=== PATIENT | male | born 1990 | race American Indian/Alaskan Native ===

== ENCOUNTER 2019-05-04 02:41 | Emergency (ER) | payer SELFPAY ==
--- NOTE | 2019-05-04 03:40 | XRay Report ---
CHEST 1 VIEW INDICATION / CLINICAL INFORMATION: Chest Pain. COMPARISON: None available. FINDINGS: SUPPORT DEVICES: None. HEART / MEDIASTINUM: No significant abnormality. LUNGS / PLEURA: No significant pulmonary or pleural abnormality. No pneumothorax. ADDITIONAL FINDINGS: No significant additional findings. IMPRESSION: 1. No acute findings. Signer Name: Solo Medrano MD Signed: 05/04/2019 3:36 AM Workstation Name: [id number]
--- NOTE | 2019-05-04 07:35 | Emergency Department Report ---
ED General Adult HPI - General Chief complaint: Dyspnea/Respdistress Stated complaint: RUMA/CHEST PAIN/DIZZINESS Time Seen by Provider: 05/04/19 05:20 Source: patient Mode of arrival: Ambulatory Limitations: No Limitations - History of Present Illness Initial comments: Patient is a 28-year-old -[place] male with no past medical history presents to the ED with complaint of acute onset of persistent shortness of breath intermittently for the last 2 days after coming from his vacation in [facility]. He states that he had to cut short his visit to the [facility] 2 days ago after he developed lightheadedness and shortness of breath especially when he lays down to sleep. Patient states that he hit it on social media that at the carp[place] weren't gone to the [place] had 2 quarts of beer today because of carbon monoxide poisoning. Patient states that he believed that he is currently having, carbon monoxide poisoning. Patient states that prior to arrival in this ED he had been extensively worked up at [facility] and that all tests were unremarkable but he states that he was still not sure about the carbon monoxide poisoning and she decided to come to the ED for that test. Patient denies dizziness, fever, chills, nausea, vomiting, chest pain, cough, abdominal pain, syncope, seizures, diarrhea, headache, back pain, or sore throat MD Complaint: lightheadedness, dyspnea -: Sudden, days(s) (2) Location: chest Radiation: non-radiation Severity scale (0 -10): 0 Quality: dull Consistency: intermittent Improves with: none Worsens with: none Associated Symptoms: denies other symptoms, shortness of breath. denies: confusion, chest pain, cough, diaphoresis, fever/chills, headaches, loss of appetite, malaise, nausea/vomiting, rash, seizure, syncope, weakness Treatments Prior to Arrival: none - Related Data Allergies Allergy/AdvReac Type Severity Reaction Status Date / Time No Known Allergies Allergy Unverified 05/04/19 02:48 ED Review of Systems ROS: Stated complaint: RUMA/CHEST PAIN/DIZZINESS Other details as noted in HPI Constitutional: denies: chills, fever Eyes: denies: eye pain, eye discharge, vision change ENT: denies: ear pain, throat pain Respiratory: shortness of breath. denies: cough, wheezing Cardiovascular: denies: chest pain, palpitations Endocrine: no symptoms reported Gastrointestinal: denies: abdominal pain, nausea, diarrhea Genitourinary: denies: urgency, dysuria Musculoskeletal: denies: back pain, joint swelling, arthralgia Skin: denies: rash, lesions Neurological: other (lightheadedness). denies: headache, weakness, paresthesias Psychiatric: denies: anxiety, depression Hematological/Lymphatic: denies: easy bleeding, easy bruising ED Past Medical Hx - Past Medical History Previous Medical History?: No - Surgical History Past Surgical History?: No - Social History Smoking Status: Never Smoker Substance Use Type: None ED Physical Exam - General Limitations: No Limitations General appearance: alert, in no apparent distress - Head Head exam: Present: atraumatic, normocephalic - Eye Eye exam: Present: normal appearance, PERRL, EOMI. Absent: scleral icterus, conjunctival injection, periorbital swelling, periorbital tenderness Pupils: Present: normal accommodation - ENT ENT exam: Present: normal exam, normal orophraynx, mucous membranes moist, TM's normal bilaterally, normal external ear exam - Neck Neck exam: Present: normal inspection. Absent: tenderness, lymphadenopathy - Respiratory Respiratory exam: Present: normal lung sounds bilaterally. Absent: respiratory distress, wheezes, rales, rhonchi, chest wall tenderness, accessory muscle use, decreased breath sounds - Cardiovascular Cardiovascular Exam: Present: regular rate, normal rhythm, normal heart sounds. Absent: systolic murmur, diastolic murmur, rubs, gallop - GI/Abdominal GI/Abdominal exam: Present: soft, normal bowel sounds. Absent: distended, tenderness, guarding, rebound, hyperactive bowel sounds, hypoactive bowel sounds, organomegaly, mass, bruit - Rectal Rectal exam: Present: deferred - Extremities Exam Extremities exam: Present: normal inspection, full ROM, normal capillary refill - Back Exam Back exam: Present: normal inspection, full ROM. Absent: CVA tenderness (L), muscle spasm, vertebral tenderness - Neurological Exam Neurological exam: Present: alert, oriented X3, CN II-XII intact, normal gait - Psychiatric Psychiatric exam: Present: normal affect, normal mood - Skin Skin exam: Present: warm, dry, intact, normal color. Absent: rash ED Course Vital Signs 05/04/19 02:48 Temperature 97.7 F Pulse Rate 73 Respiratory 18 Rate Blood Pressure 115/61 O2 Sat by Pulse 99 Oximetry - Reevaluation(s) Reevaluation #1: 05/04/19 07:36 Patient is alert and oriented 3 and is not in distress, with normal vital signs. EKG shows normal sinus rhythm with a ventricular rate of 67 bpm, and ST or T-wave abnormalities. Chest x-ray shows no acute cardiopulmonary abnormalities. The carboxyhemoglobin level is unremarkable. Patient's symptoms are likely due to panic attack or anxiety based on what he had on social media. Patient's symptoms are unlikely to be due to carbon monoxide poisoning given the length of time that it has taken since he came from [facility] and given that his vital signs are stable. Patient was discharged home and advised follow-up with his primary care physician in 2 days for reevaluation or return to the ED immediately if symptoms get worse. ED Medical Decision Making - EKG Data EKG shows normal: sinus rhythm Rate: normal - EKG Data Interpretation: normal EKG 05/04/19 07:38 Normal sinus rhythm, vent. rate 67 bpm, no ST or T wave abnormalities - Radiology Data Radiology results: report reviewed, image reviewed Chest x-ray shows no acute cardiopulmonary abnormalities - Medical Decision Making Patient is alert and oriented 3 and is not in distress, with normal vital signs. EKG shows normal sinus rhythm with a ventricular rate of 67 bpm, and ST or T-wave abnormalities. Chest x-ray shows no acute cardiopulmonary abnormalities. The carboxyhemoglobin level is unremarkable. Patient's symptoms are likely due to panic attack or anxiety based on what he had on social media. Patient's symptoms are unlikely to be due to carbon monoxide poisoning given the length of time that it has taken since he came from [facility] and given that his vital signs are stable. Patient was discharged home and advised follow-up with his primary care physician in 2 days for reevaluation or return to the ED immediately if symptoms get worse. - Differential Diagnosis Dyspnea, anxiety, lightheadedness Critical care attestation.: If time is entered above; I have spent that time in minutes in the direct care of this critically ill patient, excluding procedure time. ED Disposition Clinical Impression: Anxiety as acute reaction to exceptional stress, Shortness of breath Disposition: DC-01 TO HOME OR SELFCARE Is pt being admited?: No Does the pt Need Aspirin: No Condition: Stable Instructions: Generalized Anxiety Disorder (ED), Dyspnea (ED) Additional Instructions: Follow up with your Primary care physician in 2 days for reevaluation. Return to the ED immediately if symptoms get worse Referrals: [facility] [Outside] - 3-5 Days Time of Disposition: 07:40 Print Language: PALESTINIAN
[2019-05-04 08:40] VITALS: BP 122/69
== END 2019-05-04 08:00 | disposition home or self-care (01) ==
LOC: ED 02:41
DX: F41.1 Generalized anxiety disorder (principal)
CPT/HCPCS: 71045; 82375; 93005; 93010

== ENCOUNTER 2019-05-07 02:52 | Emergency (ER) | payer SELFPAY ==
--- NOTE | 2019-05-07 04:26 | XRay Report ---
CHEST 1 VIEW INDICATION / CLINICAL INFORMATION: Chest Pain. COMPARISON: 05/04/2019 FINDINGS: SUPPORT DEVICES: None. HEART / MEDIASTINUM: No significant abnormality. LUNGS / PLEURA: No significant pulmonary or pleural abnormality. No pneumothorax. ADDITIONAL FINDINGS: No significant additional findings. IMPRESSION: 1. No acute findings. Signer Name: Solo Medrano MD Signed: 05/07/2019 4:22 AM Workstation Name: [id number]
[2019-05-07 07:53] VITALS: BP 115/60
--- NOTE | 2019-05-07 08:30 | Emergency Department Report ---
ED General Adult HPI - General Chief complaint: Chest Pain Stated complaint: RUMA/CHEST PAIN Time Seen by Provider: 05/07/19 07:16 Source: patient Mode of arrival: Ambulatory Limitations: No Limitations - History of Present Illness Initial comments: This is a 28-year-old male presents to ED complaining resolved chest pain from prior visit 3 days ago. Patient states that symptoms are making it hard for him to sleep at night. He denies any radiation or worsening chest pain. He denies shortness of breath, fever, trauma or injuries. Patient simply states that sometimes at night is unable to sleep due to the pain. - Related Data Previous Rx's Medication Instructions Recorded Last Taken Type Cyclobenzaprine [Flexeril] 10 mg PO QHS PRN #10 tablet 05/07/19 Unknown Rx Allergies Allergy/AdvReac Type Severity Reaction Status Date / Time No Known Allergies Allergy Unverified 05/04/19 02:48 ED Review of Systems ROS: Stated complaint: RUMA/CHEST PAIN Other details as noted in HPI Comment: All other systems reviewed and negative ED Past Medical Hx - Past Medical History Previous Medical History?: No - Surgical History Past Surgical History?: No - Social History Smoking Status: Never Smoker Substance Use Type: None - Medications Home Medications: Home Medications Medication Instructions Recorded Confirmed Last Taken Type Cyclobenzaprine [Flexeril] 10 mg PO QHS PRN #10 tablet 05/07/19 Unknown Rx ED Physical Exam - General Limitations: No Limitations General appearance: alert, in no apparent distress - Head Head exam: Present: atraumatic, normocephalic - Eye Eye exam: Present: normal appearance - ENT ENT exam: Present: mucous membranes moist - Neck Neck exam: Present: normal inspection - Respiratory Respiratory exam: Present: normal lung sounds bilaterally. Absent: respiratory distress - Cardiovascular Cardiovascular Exam: Present: regular rate, normal rhythm. Absent: systolic murmur, diastolic murmur, rubs, gallop - GI/Abdominal GI/Abdominal exam: Present: soft, normal bowel sounds - Rectal Rectal exam: Present: deferred - Extremities Exam Extremities exam: Present: normal inspection - Back Exam Back exam: Present: normal inspection - Neurological Exam Neurological exam: Present: alert, oriented X3 - Psychiatric Psychiatric exam: Present: normal affect, normal mood - Skin Skin exam: Present: warm, dry, intact, normal color. Absent: rash ED Course Vital Signs 05/07/19 05/07/19 03:10 07:52 Temperature 98.1 F 98.5 F Pulse Rate 68 68 Respiratory 18 16 Rate Blood Pressure 112/69 Blood Pressure 115/60 [Left] O2 Sat by Pulse 98 99 Oximetry ED Medical Decision Making - EKG Data EKG shows normal: sinus rhythm Rate: bradycardia - EKG Data When compared to previous EKG there are: no significant change Interpretation: no acute changes - Radiology Data Radiology results: report reviewed, image reviewed CHEST 1 VIEW INDICATION / CLINICAL INFORMATION: Chest Pain. COMPARISON: 05/04/2019 FINDINGS: SUPPORT DEVICES: None. HEART / MEDIASTINUM: No significant abnormality. LUNGS / PLEURA: No significant pulmonary or pleural abnormality. No pneumothorax. ADDITIONAL FINDINGS: No significant additional findings. IMPRESSION: 1. No acute findings. Signer Name: Solo Medrano MD Signed: 05/07/2019 4:22 AM Workstation Name: [id number] Transcribed By: KENDRA Dictated By: Solo Medrano MD Electronically Authenticated By: Solo Medrano MD Signed Date/Time: 05/07/19 0422 - Medical Decision Making This 28-year-old male who is in no acute distress presents to the ED for continued muscular pain of the thorax Patient denies any worsening symptoms since his last visit. Chest x-ray was normal, EKG normal no changes since last visit. Discussed this findings with the patient. Discussed the patient to follow up with primary care physician as referred. Patient states that he was not given a work note and wanted a work note to return to work tomorrow. Vital signs are stable patient is in no acute distress. Elixir was given for muscle spasms. Discussed drowsiness effect of Flexeril and to only take at bedtime. Critical care attestation.: If time is entered above; I have spent that time in minutes in the direct care of this critically ill patient, excluding procedure time. ED Disposition Clinical Impression: Musculoskeletal chest pain Disposition: DC-01 TO HOME OR SELFCARE Is pt being admited?: No Does the pt Need Aspirin: No Condition: Stable Instructions: Chest Pain (ED), Costochondritis (ED) Additional Instructions: Make sure to follow up with the primary care physician as discussed. Take all your medications as you've been prescribed. If you have any worsening symptoms or develop new symptoms please return to ED immediately. Prescriptions: Cyclobenzaprine [Flexeril] 10 mg PO QHS PRN #10 tablet PRN Reason: Muscle Spasm Referrals: ABDIRIZAK ANDREWS MD [Primary Care Provider] - 3-5 Days [facility] [Provider Group] - 3-5 Days [facility] [Outside] - 3-5 Days [facility] [Outside] - 3-5 Days Forms: Work/School Release Form(ED) Time of Disposition: 08:30
== END 2019-05-07 08:39 | disposition home or self-care (01) ==
LOC: ED 02:52
DX: R07.89 Other chest pain (principal)
CPT/HCPCS: 71045; 93005; 93010; 99283